=== PATIENT | female | born 1965 | race Caucasian/White ===

== ENCOUNTER 2019-05-28 12:19 | Emergency (ER) | payer MEDICARE ==
[2019-05-28 12:36] VITALS: BP 178/97
--- NOTE | 2019-05-28 13:07 | XRAY Report ---
Reason: Trauma Procedure Date: 05/28/2019 Accession Number: [id number] / [id number] Procedure: XR - Wrist 4 View LT CPT Code: Final Report FULL RESULT: EXAM: LEFT WRIST RADIOGRAPHY EXAM DATE: 05/28/2019 12:54 PM. CLINICAL HISTORY: Trauma. COMPARISON: None. TECHNIQUE: 3 views. FINDINGS: No fracture detected of the wrist. Joint spaces appear preserved. No subcutaneous radiopaque foreign bodies. There is significant soft tissue prominence at the dorsum of the wrist and proximal hand, suggesting edema/bruising and/or hematoma. IMPRESSION: No fracture detected. Soft tissue prominence at the dorsum of the wrist/proximal hand. RADIA
--- NOTE | 2019-05-28 13:07 | ED Physician Documentation ---
PD HPI UPPER EXT INJURY - Stated complaint Stated Complaint: LT WRIST INJURY - Chief complaint Chief Complaint: Trauma Ext - History obtained from History obtained from: Patient (The patient states she was at home moving a dresser that was approximately 4 4-1/2 feet tall, made out in [place], when she did the dresser became top-heavy she lost control the dresser had a sudden fall so she stuck out her left hand to try to catch it and ended up slamming her hand onto the tile floor. She had immediate pain, had some swelling. She applied ice to it to see if the swelling will go down without the pain worsened so she decided come to the ED to get evaluated. She denies hitting her head. She does have some numbness tingling to the snuffbox region on the left wrist area she is able to move all of her fingers and touch them she does have good flexion and extension of the wrist though it is limited by the edema on the dorsum aspect of the hand. She did take her regular prescribed methadone medication this morning around 8:00.) Review of Systems Cardiac: reports: Reviewed and negative Respiratory: reports: Reviewed and negative Musculoskeletal: reports: Other (Left wrist and hand edema, pain, ecchymosis.) PD PAST MEDICAL HISTORY - Past Surgical History Past Surgical History: Yes Ortho: Spine surgery - Present Medications Home Medications: Ambulatory Orders Medication Instructions Recorded Confirmed Citalopram Hydrobromide [Celexa] 40 mg PO DAILY 04/12/13 05/28/19 tiZANidine [Zanaflex] 4 mg PO Q8H PRN 04/12/13 05/28/19 Lisinopril [Zestril] 0 mg PO DAILY 05/28/19 05/28/19 Methadone HCl 50 mg PO DAILY 05/28/19 05/28/19 - Allergies Allergies/Adverse Reactions: Allergies Allergy/AdvReac Type Severity Reaction Status Date / Time codeine Allergy Unknown Verified 05/28/19 12:34 diazepam Allergy Hives Verified 05/28/19 12:34 gabapentin Allergy Rash Verified 05/28/19 12:34 ketorolac Allergy Hives Verified 05/28/19 12:34 lidocaine Allergy Rash Verified 05/28/19 12:34 metoclopramide Allergy Hives Verified 05/28/19 12:34 morphine Allergy Edema Verified 05/28/19 12:34 orphenadrine [From Norflex] Allergy Unknown Verified 05/28/19 12:34 procainamide [Procainamide] Allergy Hives Verified 05/28/19 12:34 prochlorperazine edisylate * Allergy Hives Verified 05/28/19 12:34 [From Compazine] prochlorperazine maleate * Allergy Hives Verified 05/28/19 12:34 [From Compazine] Sulfa (Sulfonamide Allergy Edema Verified 05/28/19 12:34 Antibiotics) - Social History Does the pt smoke?: No Smoking Status: Never smoker Does the pt drink ETOH?: No Does the pt have substance abuse?: No - POLST Patient has POLST: No PD ED PE NORMAL - General General: Alert and oriented X 3, No acute distress, Well developed/nourished - HEENT HEENT: Atraumatic, EOMI - Respiratory Respiratory: No respiratory distress - Extremities Extremities: Other (Left fingers with good movement CMS intact distal to the injury. Patient has good flexion of the left wrist limited extension due to the hematoma forming.) PD ED PE EXPANDED - Extremities Extremities: Left forearm, Left wrist (Edema, ecchymosis.), Left hand (Edema, ecchymosis.), Other Results - Vitals Vitals: Vital Signs - 24 hr 05/28/19 12:34 Temperature 36.9 C Heart Rate 85 Respiratory 18 Rate Blood Pressure 178/97 H O2 Saturation 97 Oxygen O2 Source Room air PD MEDICAL DECISION MAKING - ED course Complexity details: reviewed results (X-ray results reviewed: radiologist states there are no fractions of the left wrist forearm.), re-evaluated patient, considered differential, d/w patient Departure - Departure Disposition: 01 Home, Self Care Clinical Impression: Contusion of bone Left wrist sprain Qualifiers: Encounter type: initial encounter Qualified Code(s): S63.502A - Unspecified sprain of left wrist, initial encounter Condition: Good Instructions: ED Sprain Wrist, Contusion Bone About Comments: As we discussed in the ER your x-ray results today show that there is no fracture of any hand or wrist bones. You do have a large swollen area, hematoma. For this keep your hand elevated apply ice 10 to 15 minutes every 2-3 hours. Keep the splint on for support. You may take it off at night to sleep or when you shower and bathe. If, while wearing the splint, your fingers start to go numb, tingling, or your fingernails start turning white / bluish, remove the spint (john wrap) and then reapply loosly. Follow-up with orthopedics within a week.
== END 2019-05-28 13:25 | disposition home or self-care (01) ==
LOC: ED 12:19
DX: T14.8XXA Other injury of unspecified body region, initial encounter (principal); S63.502A Unspecified sprain of left wrist, initial encounter; W20.8XXA Other cause of strike by thrown, projected or falling object, initial encounter; Y93.89 Activity, other specified; Y92.009 Unspecified place in unspecified non-institutional (private) residence as the place of occurrence of the external cause
CPT/HCPCS: 99283